=== PATIENT | female | born 1995 | race Caucasian/White ===

== ENCOUNTER 2022-04-08 20:36 | Emergency (ER) | payer BC, SELFPAY ==
[2022-04-08 20:37] VITALS: PULSE 160; RESP 30; TEMP 36.8; O2SAT 91; BMI 23.3
[2022-04-08 21:01] VITALS: PULSE 141; RESP 18; RESP 22; O2SAT 95
[2022-04-08] MEDS: Ipratropium/Albuterol Sulfate 3 ML AMPUL.NEB INHALATION (21:01)
[2022-04-08] MEDS: Albuterol 2.5 MG/3 ML VIAL.NEB. INHALATION (21:01)
[2022-04-08] MEDS: predniSONE 20 MG Tablet 60 MG PO (21:01)
--- NOTE | 2022-04-08 21:05 | ED.VIS.DYS ---
HPI History of Present Illness Chief Complaint: Asthma Informant: patient Narrative Narrative: 26-year-old female with a history of asthma presenting to the emergency room with shortness of breath. Patient states that she uses albuterol for her asthma and notes that she has to use her albuterol pretty much every day.. She is from [place] and came to the area for wine tasting. She states that she was sitting by a tree when she started to feel short of breath. She states its been about 6 months since he had to come to the hospital due to her asthma. She denies any fever PFSH PFS Medical History (Updated 04/08/22 @ 21:[address] Ankit Caraballo DO) Asthma Home Medications albuterol sulfate 2.5 mg/3 mL (0.083 %) solution for nebulization 2.5 mg (3 mL) inhalation Q4H PRN #25 vials 04/08/22 [Rx Last Taken Unknown] albuterol sulfate 90 mcg/actuation aerosol inhaler (ProAir HFA) 1 inh inhalation Q6H PRN Shortness Of Breath 04/08/22 [History Last Taken Unknown] prednisone 20 mg tablet 40 mg PO DAILY #8 TABLETS 04/08/22 [Rx Last Taken Unknown] Allergy/AdvReac Type Severity Reaction Status Date / Time No Known Allergies Allergy Verified 04/08/22 20:37 Social History (Updated 04/08/22 @ 21:[address] Ankit Caraballo DO) Smoking Status: Never smoker substance use type: does not use ROS ROS ED Constitutional Constitutional ED: Denies chills or weight loss Eyes Eyes: Denies change in vision or diplopia ENT ENT ED: Denies ear pain, rhinorrhea or sore throat Cardiovascular Cardiovascular: Denies chest pain, orthopnea, palpitations or racing heartbeat Respiratory/Chest Respiratory/Chest: Reports dyspnea; Denies cough or orthopnea Gastrointestinal Gastrointestinal: Denies abdominal pain, diarrhea, nausea or vomiting Genitourinary Genitourinary ED: Denies dysuria, hematuria or urinary frequency Musculoskeletal Musculoskeletal: Denies arthralgias or myalgias Integumentary Denies abscess or rash Neurologic Neurologic: Denies headache(s) or weakness Psychiatric Psychiatric: Denies anxiety, depression, suicidal ideation or suicidal thoughts Endocrine Endocrinology: Denies polydipsia, polyphagia or polyuria Allergic/Immunologic Allergic/Immunologic ED: Denies mouth swelling, tongue swelling or urticaria EXAM Physical Exam Const Vital Signs: 04/08/22 20:37 04/08/22 20:44 04/08/22 21:01 Temperature 98.2 F Temperature Source Temporal Pulse Rate 160 H 141 H Respiratory Rate 30 H 18 Respiratory Effort Short of Breath Labored Accessory Muscle Use Retracting Respiratory Depth Respiratory Pattern Normal Pulse Ox 91 Oxygen Delivery Method Room Air 04/08/22 21:01 Temperature Temperature Source Pulse Rate Respiratory Rate 22 H Respiratory Effort Short of Breath Labored Respiratory Depth Shallow Respiratory Pattern Tachypnea Pulse Ox 95 Oxygen Delivery Method Room Air Positive well nourished and well developed General Appearance ED: well developed HEENT Reports normocephalic, head/scalp atraumatic and moist mucous membranes Eyes PERRL and EOMs intact bilaterally Neck no lymphadenopathy, supple and no JVD Resp Resp Narrative: Increased work of breathing but not in distress Auscultation: wheezes expiratory wheezes Cardio regular rate, regular rhythm and no murmurs GI normal to inspection, nondistended, normoactive bowel sounds and non-tender Palpation: soft Back/Spine no CVA tenderness and normal ROM Extremity normal to inspection General Extremety ED: Negative for edema General Extremity: Negative for edema Neuro oriented x3 and CN's II-XII intact bilaterally Sensorium / Orientation: alert Motor Exam: strength 5/5 throughout Psych mental status grossly normal Mood & Affect: Negative for depressed or tearful Skin no rashes or lesions noted and no wounds MDM MDM MDM Narrative Medical decision making narrative: Patient received a DuoNeb, albuterol aerosol and prednisone. Repeat examination shows her lung sounds to be significantly improved. Patient will be placed on prednisone for the next 4 days Discharge Plan Triage Chief Complaint: Asthma ED Provider: Ankit Caraballo Dx/Rx/DC Orders Clinical Impression: Acute asthma exacerbation, Acute dyspnea Instructions: ED Asthma, Acute (Adult) Prescriptions: New albuterol sulfate 2.5 mg /3 mL (0.083 %) solution for nebulization 2.5 mg inhalation Q4H PRN Qty: 25 0RF Rx Instructions: Use q4 hours and PRN for wheezing prednisone 20 mg tablet 40 mg PO DAILY Qty: 8 0RF No Action albuterol sulfate [ProAir HFA] 90 mcg/actuation Hfa Aerosol Inhaler 1 inh INHALATION Q6H PRN (Reason: Shortness Of Breath) Primary Care Provider: Care Physician,No Primary Referrals: Care Physician,No Primary [Primary Care Provider] - Disposition Disposition: Home, Self Care
--- NOTE | 2022-04-08 21:20 | CPS ---
x1 Albuterol given to pt. in ER as well
[2022-04-08 22:06] VITALS: BP 130/78; PULSE 98; RESP 16; O2SAT 98
== END 2022-04-08 22:07 | disposition home or self-care (01) ==
PROVIDERS: Emergency Provider Emergency Medicine; Visit Provider Emergency Medicine
DX: J45.901 Unspecified asthma with (acute) exacerbation (principal); R06.00 Dyspnea, unspecified
CPT/HCPCS: 94640; 99251; 99284; G0463